=== PATIENT | male | born 1940 | race Caucasian/White ===

== ENCOUNTER 2017-05-19 19:16 | Emergency (ER) | payer MEDICARE, OTHER ==
[~2017-05-19] VITALS: Ht 170.2 cm; Wt 86.0 kg
[2017-05-19 19:19] VITALS: Ht 170.2 cm; Wt 86.0 kg
== END 2017-05-19 22:53 | disposition left against medical advice (07) ==
LOC: E/R 19:16
DX: Z53.21 Procedure and treatment not carried out due to patient leaving prior to being seen by health care provider (principal)
CPT/HCPCS: 82962